=== PATIENT | male | born 1960 | race African-American/Black ===

== ENCOUNTER 2020-07-16 13:28 | Emergency (ER) | payer OTHER ==
[2020-07-16 13:35] VITALS: BP 165/95; PULSE 75; TEMP 98.5; BMI 32.5
[2020-07-16] MEDS ORDERED: DIPHTH,PERTUSS(ACELL),TET 0.5 ML DISP.SYRIN IM ONE ×2 (14:17→14:18)
--- NOTE | 2020-07-16 15:50 | PDOC ---
History of Present Illness <Blaze Vital - Last Filed: 07/16/20 16:26> - General History Source: Patient Exam Limitations: No Limitations <[email or web address] - Last Filed: 07/18/20 15:26> - General Chief Complaint: Injury Stated Complaint: L/ARM INJURY Time Seen by Provider: 07/16/20 14:09 Past History <Blaze Vital - Last Filed: 07/16/20 16:26> - Travel History Traveled outside of the country in the last 30 days: No Close contact w/someone who was outside of country & ill: No - Psycho-Social/Smoking History Smoking History: Never smoked Information on smoking cessation initiated: No - Substance Abuse Hx (Audit-C & DAST Scrn) How often the patient has a drink containing alcohol: Never Score: In Men: 4 or > Positive; In Women: 3 or > Positive: 0 Screen Result (Pos requires Nsg. Audit-10AR): Negative <Ida Cochran - Last Filed: 07/18/20 15:26> - Medical History Allergies/Adverse Reactions: Allergies Allergy/AdvReac Type Severity Reaction Status Date / Time No Known Allergies Allergy Verified 07/16/20 13:31 Home Medications: Ambulatory Orders Cephalexin Monohydrate [Keflex -] 500 mg PO BID #14 capsule 07/16/20 Review of Systems - Review of Systems Able to Perform ROS?: Yes Comments:: 07/16/20 17:04 CONSTITUTIONAL: Absent: fever, chills, diaphoresis, generalized weakness, malaise, loss of appetite MUSCULOSKELETAL: Absent: myalgia, arthralgia, joint swelling SKIN: Present: L second digit laceration Absent: rash, itching, pallor HEMATOLOGIC/IMMUNOLOGIC: Absent: easy bleeding, easy bruising, lymphadenopathy, frequent infections ENDOCRINE: Absent: unexplained weight gain, unexplained weight loss, heat intolerance, cold intolerance NEUROLOGIC: Absent: headache, focal weakness or paresthesias, dizziness, unsteady gait, seizure, mental status changes, bladder or bowel incontinence PSYCHIATRIC: Absent: anxiety, depression, suicidal or homicidal ideation, hallucinations. Is the patient limited Maldivian proficient: No <Ida Cochran - Last Filed: 07/18/20 15:26> *Physical Exam - Vital Signs Last Vital Signs Temp Pulse Resp BP Pulse Ox 98.5 F 75 15 165/95 98 07/16/20 13:31 07/16/20 13:31 07/16/20 13:31 07/16/20 13:31 07/16/20 13:31 <Blaze Vital - Last Filed: 07/16/20 16:26> - Vital Signs Last Vital Signs Temp Pulse Resp BP Pulse Ox 98.5 F 75 15 165/95 98 07/16/20 13:31 07/16/20 13:31 07/16/20 13:31 07/16/20 13:31 07/16/20 13:31 - Physical Exam 07/16/20 16:14 GENERAL: The patient is awake, alert, and fully oriented, in no acute distress. HEAD: Normal with no signs of trauma. EYES: Pupils equal, round and reactive to light, extraocular movements intact, sclera anicteric, conjunctiva clear. EXTREMITIES: Pt able to flex and extend the DIP and PIP of the L 2nd digit, independently of each other. Normal range of motion, no edema NEUROLOGICAL: Normal speech, normal gait. PSYCH: Normal mood, normal affect. SKIN: 1.5cm laceration to the tip of the L 2nd digit involving the lateral aspect of the nailbed. Warm, Dry, normal turgor, no rashes or lesions noted. <Ida Cochran - Last Filed: 07/18/20 15:26> Procedures - Laceration/Wound Repair Left Distal 2nd digit Wound Explored: clean, no foreign body present Wound's Depth, Shape: linear, nail-avulsed Irrigated w/ Saline: Yes Betadine Prep: Yes Anesthesia: 1% Lidocaine Amount of Anesthetic (ccs): 4 Wound Debrided: minimal Wound Repaired With: Sutures Suture Size/Type: 4:0 Number of Sutures: 4 Layer Closure: No Sterile Dressing Applied: Yes Splint Applied: No <Blaze Vital - Last Filed: 07/16/20 16:26> ED Treatment Course - Medications Given in the ED: ED Medications Discontinued Medications Generic Name Dose Route Start Last Admin Trade Name Freq PRN Reason Stop Dose Admin Diphtheria/Tetanus/Acell Pertussis 0.5 ml 07/16/20 14:17 07/16/20 14:18 Boostrix - IM 07/16/20 14:18 0.5 ml .ONCE ONE Administration <Blaze Vital - Last Filed: 07/16/20 16:26> - RADIOLOGY Radiology Studies Ordered: Category Date Time Status FINGER(S) LEFT [RAD] Stat Radiology 07/16/20 14:17 Taken - Medications Given in the ED: ED Medications Discontinued Medications Generic Name Dose Route Start Last Admin Trade Name Erwin PRN Reason Stop Dose Admin Diphtheria/Tetanus/Acell Pertussis 0.5 ml 07/16/20 14:17 07/16/20 14:18 Boostrix - IM 07/16/20 14:18 0.5 ml .ONCE ONE Administration <Ida Cochran - Last Filed: 07/18/20 15:26> Medical Decision Making - Medical Decision Making 07/16/20 15:53 The patient is a 59-year-old male who presents to the ER with a laceration to his left second finger. While at work, he states he was using a new chainsaw when he slipped and caught the tip of his left second digit. He states that it also went into the nailbed. He is able to move the digit. Denies numbness and tingling weakness the affected extremity. A/P: Laceration See exam findings. Nailbed of the left second digit fully intact despite avulsed nail bed. Laceration repair performed by PGY-1 Surgicel placed over the nailbed for bleeding control. Possible tuft fracture to the left second digit. Patient placed on Keflex for open fracture Patient to return in 2 days for wound check. I discussed the physical exam findings, ancillary test results and final diagnoses with the patient. I answered all of the patient's questions. The patient was satisfied with the care received and felt comfortable with the discharge plan and treatment plan. The Patient agrees to follow up with the primary care physician/specialist within 24-72 hours. Return precautions were given. <Ida Cochran - Last Filed: 07/18/20 15:26> Discharge <Blaze Vital - Last Filed: 07/16/20 16:26> - Discharge Information Problems reviewed: Yes - Admission No <Ida Cochran - Last Filed: 07/18/20 15:26> - Discharge Information Clinical Impression/Diagnosis: Laceration Condition: Stable Disposition: HOME - Additional Discharge Information Prescriptions: Cephalexin Monohydrate [Keflex -] 500 mg PO BID #14 capsule - Follow up/Referral Referrals: Lawrence Gale MD [Primary Care Provider] - - Patient Discharge Instructions Patient Printed Discharge Instructions: DI for Laceration Repair -- Finger Additional Instructions: Discharge Instructions: You were seen in the emergency department for a laceration repair; you have 5 stitches in your L 2nd digit. Home Care: - You should avoid getting the wound wet for at least 24 hours. After 24hrs, you may wash your arm and shower normally. It is OK to use a plain soap and allow water to run over the wound. Do not scrub at the wound, and pat dry after washing. Do not rub with a towel. - After 24hrs you may remove the bandage and leave the wound open to air. - Do not apply any lotions, ointments, creams or other topical medications to the wound - Some redness and swelling is expected after an injury. You may see a small amount of bleeding or pinkish drainage on the bandage when you remove it. This is normal. - You may use acetaminophen (Tylenol) or ibuprofen (Advil, Motrin) as needed for pain. Please follow the directions on the bottle for dosing information. Follow Up: -Please return to the ER on Monday for a wound check. Leave the dressing intact until you return. - You need to have the stitches removed in 7-10 days - You can return to the emergency room/an urgent care or see your regular doctor. - Seek immediate medical care if your wound becomes significantly more painful, swollen, red, you have a large amount of thick drainage, you have fevers to 101F or higher, or you have red streaking from the wound. es in your symptoms. - Post Discharge Activity Work/Back to School Note: Back to Work
== END 2020-07-16 16:30 | disposition home or self-care (01) ==
LOC: JERFT 13:28
PROC: 0HQFXZZ Repair Right Hand Skin, External Approach (ICD-10-PCS; principal; 2020-07-16)
PROC: 3E0234Z Introduction of Serum, Toxoid and Vaccine into Muscle, Percutaneous Approach (ICD-10-PCS; 2020-07-16)
DX: S61.210A Laceration without foreign body of right index finger without damage to nail, initial encounter (principal)
CPT/HCPCS: 73140-TC-LT-FY; 90715; 99284-25

== ENCOUNTER 2020-07-18 09:05 | Emergency (ER) | payer OTHER ==
[2020-07-18 09:13] VITALS: BP 156/88; PULSE 66; TEMP 98.2; BMI 32.5
--- NOTE | 2020-07-18 10:05 | PDOC ---
Suture Removal/Wound Check HPI - History of Present Illness Chief Complaint: Revisit,Wound Recheck Stated Complaint: LAC FOLLOW UP Time Seen by Provider: 07/18/20 09:12 History Source: Yes: Patient Exam Limitations: Yes: No Limitations - Previous ED Treatment Type of procedure performed on last visit: Yes: Laceration Repair Tetanus Immunization: Yes: Up to Date, Given at last ED visit Past History - Travel History Traveled outside of the country in the last 30 days: No Close contact w/someone who was outside of country & ill: No - Medical History Allergies/Adverse Reactions: Allergies Allergy/AdvReac Type Severity Reaction Status Date / Time No Known Allergies Allergy Verified 07/16/20 13:31 Home Medications: Ambulatory Orders Cephalexin Monohydrate [Keflex -] 500 mg PO BID #14 capsule 07/16/20 COPD: No - Psycho-Social/Smoking History Smoking History: Unknown if ever smoked - Substance Abuse Hx (Audit-C & DAST Scrn) How often the patient has a drink containing alcohol: Monthly or less Score: In Men: 4 or > Positive; In Women: 3 or > Positive: 1 Screen Result (Pos requires Nsg. Audit-10AR): Negative In the last yr the pt used illegal drug/Rx for NonMed reason: No Score: Yes response is considered Positive: 0 Screen Result (Positive result requires Nsg. DAST-10): Negative Suture Removal/Wound Check PE - Physical Exam Laceration/Wound Check Symptoms: reports: Improved. denies: Redness, Bleeding, Numbness Current Severity Level: None Location of Laceration/Wound: left: Finger (L 2nd digit, 4 simple interrupted sutures intact. No evidence of secondary infection. Full range of motion noted.) *Review of Systems - Review of Systems Constitutional: No: Chills, Fever, Weakness Integumentary: No: Bruising, Erythema, Rash, Other (Drainage) *Physical Exam - Vital Signs Last Vital Signs Temp Pulse Resp BP Pulse Ox 98.2 F 66 18 156/88 97 07/18/20 09:08 07/18/20 09:08 07/18/20 09:08 07/18/20 09:08 07/18/20 09:08 - Physical Exam General Appearance: Yes: Nourished. No: Appropriately Dressed, Apparent Distress, Disheveled Medical Decision Making - Medical Decision Making 07/18/20 15:46 Patient is a 59-year-old male no past medical history presents to the ER today for wound check to his left second digit. He denies fevers or purulent drainage from the site. He has left the dressing that was placed 2 days ago on the wound. He is here for wound check. He is taking the antibiotics as directed. Denies numbness and tingling weakness the affected extremity. A/P: Wound check of left second digit laceration. On exam wound is healing well, no evidence of secondary infection. Sutures are intact. No active bleeding. New dressing placed. Patient advised to continue the antibiotics as previously prescribed Tetanus was updated at initial visit. Patient instructed to return in 1 week to have the stitches removed. Discharge home I discussed the physical exam findings, ancillary test results and final diagnoses with the patient. I answered all of the patient's questions. The patient was satisfied with the care received and felt comfortable with the discharge plan and treatment plan. The Patient agrees to follow up with the primary care physician/specialist within 24-72 hours. Return precautions were given. Discharge - Discharge Information Problems reviewed: Yes Clinical Impression/Diagnosis: Visit for wound check Condition: Stable Disposition: HOME - Admission No - Follow up/Referral Referrals: Lwarence Gale MD [Primary Care Provider] - - Patient Discharge Instructions Patient Printed Discharge Instructions: DI for Laceration Repair -- Finger Additional Instructions: Your wound is healing as expected. You may wash your hands with gentle soap and water. The scabbing should start to lift which is okay. Keep the area open to air when resting or at home. You may cover it when you go out. Return in 1 week to have the stitches removed. Continue the antibiotics as directed Return to the ER sooner for increased redness to the area, pain, numbness or tingling or if you have any changes in your symptoms - Post Discharge Activity
== END 2020-07-18 10:08 | disposition home or self-care (01) ==
LOC: JER 09:05
DX: Z48.00 Encounter for change or removal of nonsurgical wound dressing (principal)
CPT/HCPCS: 99281-25

== ENCOUNTER 2020-07-25 10:08 | Emergency (ER) | payer OTHER ==
[2020-07-25 10:17] VITALS: BP 138/86; PULSE 66; TEMP 98; BMI 32.5
--- NOTE | 2020-07-25 10:38 | PDOC ---
Suture Removal/Wound Check HPI - History of Present Illness Chief Complaint: Suture/Staple Removal(Here) Stated Complaint: SUTURE/STAPLE REMOVAL Time Seen by Provider: 07/25/20 10:22 History Source: Yes: Patient Exam Limitations: Yes: No Limitations Past History - Travel History Traveled outside of the country in the last 30 days: No Close contact w/someone who was outside of country & ill: No - Medical History Allergies/Adverse Reactions: Allergies Allergy/AdvReac Type Severity Reaction Status Date / Time No Known Allergies Allergy Verified 07/25/20 10:15 Home Medications: Ambulatory Orders Cephalexin Monohydrate [Keflex -] 500 mg PO BID #14 capsule 07/16/20 COPD: No - Psycho-Social/Smoking History Smoking History: Never smoked Information on smoking cessation initiated: No - Substance Abuse Hx (Audit-C & DAST Scrn) How often the patient has a drink containing alcohol: Never Score: In Men: 4 or > Positive; In Women: 3 or > Positive: 0 Screen Result (Pos requires Nsg. Audit-10AR): Negative In the last yr the pt used illegal drug/Rx for NonMed reason: No Score: Yes response is considered Positive: 0 Screen Result (Positive result requires Nsg. DAST-10): Negative Suture Removal/Wound Check PE - Physical Exam Laceration/Wound Check Symptoms: reports: Improved Current Severity Level: None Maximum Severity Level: None Location of Laceration/Wound: right: Finger (4 simple interrupted sutures placed in the left second digit well approximated. Nailbed is growing out.) *Review of Systems - Review of Systems Able to Perform ROS?: Yes Constitutional: No: Chills, Fever, Weakness Integumentary: No: Erythema, Pruritus, Rash Neurological: No: Numbness *Physical Exam - Vital Signs Last Vital Signs Temp Pulse Resp BP Pulse Ox 98 F 66 19 138/86 97 07/25/20 10:13 07/25/20 10:13 07/25/20 10:13 07/25/20 10:13 07/25/20 10:13 - Physical Exam General Appearance: Yes: Nourished, Appropriately Dressed. No: Apparent Distress Medical Decision Making - Medical Decision Making 07/25/20 12:12 Patient is a 59-year-old male who presents for suture removal to the left second digit. He denies fevers chills, purulent drainage from the area. He finished his antibiotics as directed. Denies pain, no stimulus effect extremity. A/P: Suture removal On exam 4 simple directed sutures placed to the left second finger. Nailbed is currently healing and growing out. No signs of infection. Sutures removed at this time. Wound care instructions given for discharge. I discussed the physical exam findings, ancillary test results and final diagnoses with the patient. I answered all of the patient's questions. The patient was satisfied with the care received and felt comfortable with the discharge plan and treatment plan. The Patient agrees to follow up with the primary care physician/specialist within 24-72 hours. Return precautions were given. Discharge - Discharge Information Problems reviewed: Yes Clinical Impression/Diagnosis: Visit for suture removal Condition: Stable Disposition: HOME - Admission No - Follow up/Referral Referrals: Lawrence Gale MD [Primary Care Provider] - - Patient Discharge Instructions Patient Printed Discharge Instructions: DI for Suture Removal Additional Instructions: You had your sutures/ivonne removed today. Please use bacitracin on the site for the next week. Avoid soaking the area with water for 1 more week as to what the wound fully heal. Follow-up with her primary care doctor as needed Return to the emergency department if you develop fevers, drainage from the site, increased pain, or have any changes in your symptoms. - Post Discharge Activity
== END 2020-07-25 10:40 | disposition home or self-care (01) ==
LOC: JERFT 10:08
DX: Z48.02 Encounter for removal of sutures (principal)
CPT/HCPCS: 99281-25